=== PATIENT | female | born 1995 | race Hispanic/Latino ===

== ENCOUNTER 2023-12-25 17:06 | Emergency (ER) | payer OTHER, SELFPAY ==
[2023-12-25 17:20] VITALS: BP 136/90; PULSE 86; RESP 16; TEMP 36.6; O2SAT 100; BMI 24.1
--- NOTE | 2023-12-25 19:30 | PC.NURSE ---
pt had a recent fall has matthieu brace in place on right knee, here to learn what the plan is for her knee as she is still having pain and was told she would need a MRI, was seen at [facility]
--- NOTE | 2023-12-25 20:18 | PC.NURSE ---
Normal xray and if things persist follow up per [facility] records.
--- NOTE | 2023-12-25 20:42 | ED_ITS ---
HPI - Extremity Injury (Lower) General Chief Complaint: Extremity Injury, Lower Stated Complaint: R Knee Pain Time Seen by Provider: 12/25/23 18:57 Source: patient Mode of arrival: Ambulatory History of Present Illness HPI Narrative: 28yoF presents for evaluation of R knee pain. patient states that she fell while getting physical therapy. She was evaluated at outside hospital where she was told she did not have a fracture but would eventually need an MRI. Patient reports that she is frustrated because her MRI is not scheduled for another week, but she was having to work on her painful leg and she can not get the records of what is wrong with her leg. She states that she can't seem to get any answers from [facility] andshe would like a note for work so that she can recover and not put as much weight on her painful knee. Related Data Home Medications Medication Instructions Recorded Confirmed acetaminophen 325 mg tablet 650 mg PO Q4HR PRN Pain, Moderate 12/25/23 12/25/23 ibuprofen 800 mg tablet 800 mg PO Q6H PRN Moderate Pain 12/25/23 12/25/23 (Scale Score 5-6) Previous Rx's Medication Instructions Recorded tramadol 50 mg tablet 50 mg PO Q8H PRN pain #14 tabs 12/25/23 Allergies Allergy/AdvReac Type Severity Reaction Status Date / Time No Known Drug Allergies Allergy Verified 12/25/23 17:30 Review of Systems Review of Systems Narrative: see HPI Patient History Social History Smoking Status: Never smoker Smoking Status: Never smoker Substance Use Type: does not use Exam Initial Vital Signs Initial Vital Signs: Vital Signs Temperature 97.8 F 12/25/23 17:20 Pulse Rate 86 12/25/23 17:20 Respiratory Rate 16 12/25/23 17:20 Blood Pressure 136/90 12/25/23 17:20 Pulse Oximetry 100 12/25/23 17:20 Oxygen Delivery Method Room Air 12/25/23 17:20 Const: Awake, alert, no acute distress, nontoxic appearing MSK: no deformity, full ROM, in brace Skin: Warm, Dry, intact, no rashes Neuro: AO x3, CN II-XII grossly intact, moves all extremities Course Vital Signs Vital signs: Vital Signs - 8 hr 12/25/23 17:20 Temperature 97.8 F Pulse Rate 86 Respiratory Rate 16 Blood Pressure 136/90 Pulse Oximetry 100 Oxygen Delivery Method Room Air MDM - Extremity Injury (Lower) Differential Diagnosis Differential diagnosis: Likely ankle sprain and strain, acute internal deran gement of knee and fracture of femur MDM Narrative Medical decision making narrative: Patient presenting for pain in her right knee. She has an MRI scheduled in 1 week and negative imaging at [facility]. Record review from [facility] shows normal knee x-ray, it was reported that she had some laxity at the LCL ligament and this may be the cause of her symptoms. With advanced imaging already scheduled through the [facility] no indication for repeat x-ray imaging at this time. Patient states her biggest concern is that she was being made to work on her painful leg. Pain medications sent to pharmacy of choice. Patient given a note for the rest of the week off of work so that she may rest and recover at home. Discharge Plan Departure Patient Disposition: Home Clinical Impression: Acute knee pain Instructions: DI for Knee Pain Activity Restrictions/Additional Instructions: Continue to take Tylenol and ibuprofen as needed for pain. Apply ice for swelling. Wear the brace and use crutches when mobile. Take the prescribed pain medications if Tylenol and Motrin do not help your pain. Follow up on Monday as scheduled for your MRI Prescriptions: New tramadol 50 mg tablet 50 mg PO Q8H PRN (Reason: pain) Qty: 14 0RF No Action acetaminophen 325 mg tablet 650 mg PO Q4HR PRN (Reason: Pain, Moderate) ibuprofen 800 mg tablet 800 mg PO Q6H PRN (Reason: Moderate Pain (Scale Score 5-6)) Stand Alone Forms: Patient Portal/API, Work Release Note
== END 2023-12-25 20:53 | disposition home or self-care (01) ==
PROVIDERS: Emergency Provider Emergency Medicine
DX: M25.561 Pain in right knee (principal); W19.XXXA Unspecified fall, initial encounter
CPT/HCPCS: 99281

== ENCOUNTER → 2024-12-06 17:06 | Outpatient (CLI) | payer OTHER, SELFPAY ==
--- NOTE | 2024-12-06 17:08 | DI.MRI.S_ITS ---
PROCEDURE: MR KNEE RT WO CON INDICATIONS: INSTABILITY RIGHT KNEE TECHNIQUE: Noncontrast sagittal PD fast spin echo and T2 fast spin echo with fat saturation, sagittal 3-D FLASH with fat saturation; coronal T1 spin echo and PD fast spin echo with fat saturation, and axial PD fast spin echo with fat saturation through the knee. COMPARISON: None. FINDINGS: Image quality: Excellent. Menisci: The medial meniscus is intact. Signal abnormality involving anterior horn of lateral meniscus extending to superior articulating surface. Cruciate ligaments: Patient is status post ACL reconstruction with postsurgical changes. ACL graft is attenuated near its mid to distal portion concerning for sprain/low-grade partial-thickness tear. No definite full-thickness ACL graft rupture. The PCL is intact. Medial structures: The medial collateral ligament appears intact. Visualized portions of the pes anserinus tendons appear normal. No abnormal bursal fluid. Lateral structures: The lateral collateral ligament, long and short heads of the biceps femoris tendon appear intact. The popliteus tendon appears normal. Iliotibial band appears normal. Anterior structures: The quadriceps tendon is intact. Diffuse thickened patellar tendon is seen. No patellar tendon rupture. Patella position is normal. Bones and cartilage: Postsurgical changes are noted in lateral aspect of distal femur and medial aspect of proximal tibia with susceptibility artifacts. No gross marrow edema. No acute fracture or dislocation. No signal abnormality is seen in tibial tunnel or femoral tunnel. No abnormal anterior tibial translation. Articulating cartilages normal in thickness. Joint space: There is small knee joint fluid. There is a tiny popliteal cyst.. Normal appearing synovial plicae are incidentally noted. IMPRESSION: 1. Prior ACL reconstruction with postsurgical changes. Anatomic right knee alignment. No anterior tibial translation. No acute fracture or dislocation. Articulating cartilages normal in thickness. 2. Slightly attenuated appearance of the ACL graft particularly near its mid to distal portion concerning for low to moderate grade partial-thickness tear. No full-thickness ACL graft rupture. The PCL is intact. 3. Diffusely thickened patellar tendon suggestive of tendinosis. No tendon rupture. 4. Oblique tear involving anterior horn of lateral meniscus extending to superior articulating surface. No medial meniscal tear. 5. Small joint effusion and tiny popliteal cyst. No loose bodies. Dictated by: Tariq Taveras M.D. on 12/09/2024 at 9:52 Approved by: Tariq Taveras M.D. on 12/09/2024 at 9:57
== END ==
PROVIDERS: Referring Provider Student in an Organized Health Care Education/Training Program; Visit Provider Student in an Organized Health Care Education/Training Program
DX: S83.281A Other tear of lateral meniscus, current injury, right knee, initial encounter (principal); M25.361 Other instability, right knee; M25.461 Effusion, right knee
CPT/HCPCS: 73721

== ENCOUNTER → 2024-12-12 11:02 | Outpatient (CLI) | payer OTHER, SELFPAY ==
--- NOTE | 2024-12-12 11:05 | DI.CT.S_ITS ---
PROCEDURE: CT KNEE RIGHT WITHOUT CON INDICATIONS: SPRIAN ON RT KNEE TECHNIQUE: Noncontrast 1-1.5 mm axial sections acquired from the mid-patella to the proximal tibia, with coronal and sagittal reformats. COMPARISON: [facility], MR, MR KNEE RT WO CON, 12/06/2024, 17:16. FINDINGS: Image quality: Excellent. Bones: Mild disuse osteopenia. No acute fracture or dislocation. Joints: Small joint effusion. The joint spaces are preserved. Muscles: Overall muscle bulk is preserved. Tendons: The quadriceps tendon contour is preserved. Heterogeneity of the patellar tendon, likely secondary to ACL autograft harvesting. Vessels: No aneurysmal dilatation of the popliteal artery. Lymph nodes: No popliteal lymphadenopathy. Other soft tissues: Status post ACL reconstruction with mild lucency around the tibial tunnel (). Otherwise, no hardware complication of the femoral endo-button or tibial screw. IMPRESSION: 1. Small joint effusion. Otherwise, no acute fracture or dislocation. 2. Status post ACL reconstruction without hardware complication. Dictated by: Brett Waller M.D. on 12/12/2024 at 20:38 Approved by: Brett Waller M.D. on 12/12/2024 at 20:43
== END ==
PROVIDERS: Referring Provider Student in an Organized Health Care Education/Training Program; Visit Provider Student in an Organized Health Care Education/Training Program
DX: S83.511A Sprain of anterior cruciate ligament of right knee, initial encounter (principal); M25.461 Effusion, right knee; X58.XXXA Exposure to other specified factors, initial encounter; Z98.890 Other specified postprocedural states
CPT/HCPCS: 73700